=== PATIENT | male | born 1960 | race Caucasian/White ===

== ENCOUNTER 2018-12-12 18:10 | Emergency (ER) | payer OTHER ==
[~2018-12-12] VITALS: Ht 172.7 cm; Wt 90.4 kg
[~2018-12-12 18:10] MED LIST: VIC
[2018-12-12 18:25] VITALS: Ht 172.7 cm; Wt 90.4 kg
[2018-12-12] MEDS ORDERED: LIDOCAINE 1% (MDV) 20 ML INJ SC ONE (19:30)
[2018-12-12] MEDS ORDERED: DIPHTH/TET/ACEL PERTUSS (ADULT) 0.5 ML VIAL IM* ONE (19:30)
[2018-12-12] MEDS ORDERED: CEPH-443 PO (20:42)
[2018-12-12] MEDS ORDERED: BACITRACIN 0.9 GM OINT TOP ONE (21:00)
[2018-12-12] MEDS ORDERED: TRAM50TA2 PO (21:17)
[2018-12-12] MEDS ORDERED: IBUP800T48 PO (21:17)
[2018-12-12] MEDS: HYDROCODONE/APAP (5/325) TAB PO ONE ×2 (21:27→21:32)
[2018-12-12 21:46] VITALS: BP 140/98; PULSE 68; RESP 16
--- NOTE | 2018-12-12 22:12 | ERD ---
ER Documentation Chief Complaint Chief Complaint R HAND LACERATION AFTER CUTTING GLASS HPI History of Present Illness: 58-year-old male who denies a past medical history coming in today with complaint of right hand laceration after cutting glass. Patient reports he is prepping for his son's birthday libertarian in which the accident happened in which he was cut by glass at approximately 1630. Patient reports taking fish oil daily. At home pharmacological/nonpharmacological treatment for symptoms: Denies Denies social concerns; Denies recent foreign travel ROS All systems reviewed and are negative except as per history of present illness. Medications Home Meds Active Scripts Ibuprofen* (Motrin*) 800 Mg Tab, 800 MG PO Q6H PRN for PAIN AND OR ELEVATED TEMP, #30 TAB Prov:GREGOR CRAWFORD NP 12/12/18 Tramadol HCl (Tramadol HCl) 50 Mg Tablet, 50 MG PO Q8 for MODERATE-SEVERE PAIN, #9 TAB Use this medication is ibuprofen is not working. This is for pain with moderate to severe severity Prov:GREGOR CRAWFORD NP 12/12/18 Cephalexin* (Keflex*) 500 Mg Capsule, 500 MG PO QID for laceration infection preventio for 5 Days, CAP Prov:GREGOR CRAWFORD NP 12/12/18 Reported Medications Acetaminophen/Hydrocodone (Vicodin) 1 Tab Tab 07/26/12 Allergies Allergies: Coded Allergies: No Known Allergy (Unverified , 07/26/12) PMhx/Soc History of Surgery: Yes (HERNIA REPAIR) Hx Alcohol Use: No Hx Substance Use: No Hx Tobacco Use: No Smoking Status: Never smoker FmHx Family History: No diabetes Physical Exam Vitals Vital Signs Date Temp Pulse Resp B/P (MAP) Pulse Ox O2 O2 Flow FiO2 Time Delivery Rate 12/12/18 98.0 68 16 140/98 99 Room Air 21:46 (112) 12/12/18 97.8 97 20 166/114 99 18:25 (131) Physical Exam Const: No acute distress, afebrile, anxious Head: Atraumatic Eyes: Normal Conjunctiva ENT: Normal External Ears, Nose and Mouth. Neck: Full range of motion. No meningismus. Resp: Clear to auscultation bilaterally Cardio: Regular rate and rhythm, no murmurs Abd: Soft, non tender, non distended. No guarding, no masses, no rigidity Skin: No petechiae or rashes; right upper extremity: Skin flap laceration noted to dorsal aspect of right hand above the third digit (proximal aspect), 4 cm, bleeding controlled, no foreign bodies noted, patient able to bend and extend her digit without difficulty, neurovascularly intact distally Back: No midline or flank tenderness Ext: No cyanosis, or edema Neur: Awake and alert x3, speaking in clear sentences, no focal deficits or facial asymmetry Psych: Normal Mood and Affect Results 24 hrs Current Medications Medications Dose Sig/Morris Start Time Status Last (Trade) Ordered Route PRN Stop Time Admin Dose Reason Admin Diphtheria/ 0.5 ml ONCE ONCE 12/12/18 DC 12/12/18 Tetanus/Acell IM* 19:30 19:24 Pertussis 12/12/18 19:31 (Adacel) Lidocaine 20 ml ONCE ONCE 12/12/18 DC (Xylocaine SC 19:30 1% (Mdv) 20 12/12/18 19:31 ml) Bacitracin 1 applic ONCE ONCE 12/12/18 DC (Bacitracin TOP 21:00 Oint (Ud)) 12/12/18 21:01 1 tab ONCE ONCE 12/12/18 DC Acetaminophen PO 21:30 / 12/12/18 21:31 Hydrocodone Bitart ([place] (5/325)) Procedures/MDM ED course includes a thorough examination and history. Medications: Lidocaine, Imaging: Right hand x-ray Labs: Low suspicion for life-threatening medical emergency. low suspicion for orthopedic emergency that requires hospitalization or immediate surgical intervention. Otherwise healthy patient presenting with constellation of symptoms likely representing uncomplicated laceration secondary to hand injury as characterized by history, physical exam findings, imaging findings. X-ray results showing: IMPRESSION: Soft tissue swelling surrounding proximal aspect of the fourth digit. No acute fracture or radiopaque foreign body. RPTAT: HMVK .Leonard Lopez MD, MD Date Time Electronically viewed and signed by .Leonard Lopez MD, on 12/12/2018 20:19 Laceration Repair by me: Anesthesia: 1% lidocaine locally Location: Proximal aspect of third digit of right hand Tendon/Joint/Nerves: No injury Foreign body: None detected after copious irrigation and exploration, 500ML Technique: Simple Interrupted Sutures, 50, Prolene, 6 sutures Complexity: No subcutaneous sutures/mucosal repair/edge excision Post Closure Length: 4 cm Patient's bleeding was easily controlled in the department and there is no indication of anemia. No evidence of compartment syndrome, neurologic injury, vascular injury, open joint, tendon laceration, or foreign body. Patient is appropriate for outpatient follow up. 48 hour wound check. Scar minimization instructions given. Patient reassessment 2112: Patient reporting pain to right hand secondary to object falling on hand and causing injury. Orders placed for [place] before discharge. Laceration repair complete. Patient's friend at bedside. Patient hemodynamically stable. No respiratory distress, otherwise relatively well appearing and nontoxic. Disposition given. Patient educated on diagnoses, prescriptions, follow-up care, return precautions. Strict return precautions given for worsening condition; questions answered discharge. Patient verbalized understanding of follow-up, return precautions. Patient reports he is going out of town on a trip. Education given on proper laceration repair. Advised not to submerge hand into swimming pool until laceration is healed. Disposition for discharge with followup in 2 days with PCP/clinic. Departure Diagnosis: Primary Impression: Laceration Condition: Stable Patient Instructions: Laceration, Hand Referrals: [facility] YOU HAVE RECEIVED A MEDICAL SCREENING EXAM AND THE RESULTS INDICATE THAT YOU DO NOT HAVE A CONDITION THAT REQUIRES URGENT TREATMENT IN THE EMERGENCY DEPARTMENT. FURTHER EVALUATION AND TREATMENT OF YOUR CONDITION CAN WAIT UNTIL YOU ARE SEEN IN YOUR DOCTORS OFFICE WITHIN THE NEXT 1-2 DAYS. IT IS YOUR RESPONSIBILITY TO MAKE AN APPOINTMENT FOR FOLOW-UP CARE. IF YOU HAVE A PRIMARY DOCTOR --you should call your primary doctor and schedule an appointment IF YOU DO NOT HAVE A PRIMARY DOCTOR YOU CAN CALL OUR PHYSICIAN REFERRAL HOTLINE AT IF YOU CAN NOT AFFORD TO SEE A PHYSICIAN YOU CAN CHOSE FROM THE FOLLOWING [facility] [address] [place]. [facility] [address] [facility]. [facility] [address] [facility] [address] [facility] [address] [facility] [address] [facility]. [facility] YOU HAVE RECEIVED A MEDICAL SCREENING EXAM AND THE RESULTS INDICATE THAT YOU DO NOT HAVE A CONDITION THAT REQUIRES URGENT TREATMENT IN THE EMERGENCY DEPARTMENT. FURTHER EVALUATION AND TREATMENT OF YOUR CONDITION CAN WAIT UNTIL YOU ARE SEEN IN YOUR DOCTORS OFFICE WITHIN THE NEXT 1-2 DAYS. IT IS YOUR RESPONSIBILITY TO MAKE AN APPOINTMENT FOR FOLOW-UP CARE. IF YOU HAVE A PRIMARY DOCTOR --you should call your primary doctor and schedule and appointment IF YOU DO NOT HAVE A PRIMARY DOCTOR YOU CAN CALL OUR PHYSICIAN REFERRAL HOTLINE AT . IF YOU CAN NOT AFFORD TO SEE A PHYSICIAN YOU CAN CHOSE FROM THE FOLLOWING [facility] INSTITUTIONS: [facility] [address] [place] [address] [facility] [address] [place] [address] [facility] [address] [place] [address] Additional Instructions: Thank you very much for allowing us to participate in your care. Your health and safety is our top priority at [facility]. It is important to read all discharge instructions and education provided in your discharge packet. *Wound recheck in 2 to 3 days to ensure infection is not present. Suture removal in 10 days.* Call your primary care doctor TOMORROW for an appointment during the next 2-4 days and bring all the information and medications prescribed. Have prescriptions filled and follow precisely the directions on the label. -Cephalexin is an antibiotic; take this medication every day as listed on your prescription. You must complete the entire course of treatment that is listed on your prescription this is very important because it takes a certain number of days to kill the bacteria that is causing the infection. -Ibuprofen is a medication that will help with pain/inflammation. At the dosage of 600 to 800 mg, this will help with inflammation/swelling. Take this medication as prescribed. -Tramadol is an opiate pain medication; take this medication as needed for moderate to severe pain. No operating of heavy machinery while taking this medication. It may cause drowsiness. If the symptoms get worse and your provider is unavailable, return to the Emergency Department immediately. GREGOR CRAWFORD NP Dec 12, 2018 22:12
== END 2018-12-12 21:46 | disposition home or self-care (01) ==
LOC: FTE 18:10
DX: S61.212A Laceration without foreign body of right middle finger without damage to nail, initial encounter (principal); W25.XXXA Contact with sharp glass, initial encounter; Y92.9 Unspecified place or not applicable; Z23 Encounter for immunization
CPT/HCPCS: 90471; 90715